=== PATIENT | female | born 2005 | race Caucasian/White ===

== ENCOUNTER 2024-02-27 06:45 | Emergency (ER) | payer SELFPAY ==
[~2024-02-27] VITALS: Ht 185.4 cm; Wt 92.5 kg
[2024-02-27 09:07] VITALS: BP 134/65; TEMP 98.4; O2SAT 96
== END 2024-02-27 08:35 | disposition home or self-care (01) ==
LOC: ER 06:57
DX: S89.92XA Unspecified injury of left lower leg, initial encounter (principal); Y93.89 Activity, other specified; Y92.89 Other specified places as the place of occurrence of the external cause; Y99.8 Other external cause status